=== PATIENT | male | born 1930 | race Caucasian/White ===

== ENCOUNTER 2020-06-12 14:05 | Emergency (ER) | payer MEDICARE ==
[~2020-06-12] VITALS: Ht 190.5 cm; Wt 65.8 kg
[~2020-06-12 14:05] MED LIST: CIPRO500 MG PO; KEFLEX500 MG PO
--- NOTE | 2020-06-13 10:59 | EKG ---
[facility] [address] [facility] [place], [place] [address] Signed Atrial fibrillation with rapid ventricular response Left axis deviation Left bundle branch block Abnormal ECG When compared with ECG of 12-JUN-2020 14:23, (Unconfirmed) ST no longer elevated in Anterior leads Confirmed by DARIEL PUGH DO ([id number]) on 06/13/2020 10:59:34 AM Electronically Signed By: DARIEL PUGH DO 06/13/20 1059 PATIENT NAME: SYDNEY LARA Electrocardiogram DATE OF : [birth year] PHYSICIAN: DARIEL PUGH DO REPORT #: [id number] REPORT IS CONFIDENTIAL AND NOT TO BE RELEASED WITHOUT AUTHORIZATION
--- NOTE | 2020-06-13 10:59 | EKG ---
[facility] [address] [facility] [place], [place] [address] Signed Atrial fibrillation with rapid ventricular response with premature ventricular or aberrantly conducted complexes Left axis deviation Left bundle branch block Abnormal ECG No previous ECGs available Confirmed by DARIEL PUGH DO ([id number]) on 06/13/2020 10:58:58 AM Electronically Signed By: DARIEL PUGH DO 06/13/20 1059 PATIENT NAME: SYDNEY LARA Electrocardiogram DATE OF : [birth year] PHYSICIAN: DARIEL PUGH DO REPORT #: [id number] REPORT IS CONFIDENTIAL AND NOT TO BE RELEASED WITHOUT AUTHORIZATION
--- NOTE | 2020-06-13 11:00 | EKG ---
[facility] [address] [facility] [place] [address] Signed Wide QRS tachycardia Left axis deviation Left bundle branch block Abnormal ECG When compared with ECG of 12-JUN-2020 16:23, (Unconfirmed) Wide QRS tachycardia has replaced Atrial fibrillation Confirmed by DARIEL PUGH DO ([id number]) on 06/13/2020 11:00:32 AM Electronically Signed By: DARIEL PUGH DO 06/13/20 1100 PATIENT NAME: SYDNEY LARA Electrocardiogram DATE OF : [birth year] PHYSICIAN: DARIEL PUGH DO REPORT #: [id number] REPORT IS CONFIDENTIAL AND NOT TO BE RELEASED WITHOUT AUTHORIZATION
== END 2020-06-12 20:16 | disposition short-term general hospital (02) ==
LOC: ED 14:05
DX: I48.91 Unspecified atrial fibrillation (principal); I48.92 Unspecified atrial flutter; N39.0 Urinary tract infection, site not specified
CPT/HCPCS: 70450; 71045; 80053; 81001; 83690; 83880; 84484; 85025; 87077; 87088; 87186; 93005; 93010; 96365; 96375; 96376; 99285-25; J0282; J0696; J1160; J1650; J2001; J7040

== ENCOUNTER 2020-06-26 11:01 | Emergency (ER) | payer MEDICARE ==
[~2020-06-26] VITALS: Ht 190.5 cm; Wt 65.8 kg
--- OUTSIDE RECORDS SUMMARY | 2020-06-26 11:04 | XMS ---
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 Sigrid has no Care Guidelines for this patient. [place] VISIT COUNT (12 MO.) [address] [facility] [address] [facility] TOTAL 3 NOTE: Visits indicate total known visits. ED/C VISIT TRACKING (12 MO.) 06/26/2020 11:01 [facility] [place] TYPE: Emergency COMPLAINT: - LIGHT HEADED, DIZZY [facility] DIAGNOSES: - Urinary tract infection, site not specified - Hematuria, unspecified - Arrthymia - Weakness - Weakness - Unspecified atrial fibrillation 06/12/2020 14:06 [facility] TYPE: Emergency COMPLAINT: - SLURRED SPEACH, WEAKNESS, WOUND CHECK DIAGNOSES: - Unspecified atrial flutter - Unspecified atrial fibrillation - Urinary tract infection, site not specified INPATIENT VISIT TRACKING (12 MO.) [facility]12[facility]2020 21[facility] DIAGNOSES: - Unspecified atrial fibrillation - Weakness - Acute cystitis with hematuria - Urinary tract infection, site not specified - Hematuria, unspecified - Other specified abnormalities of plasma proteins [email or web address]
[2020-06-26] MEDS ORDERED: ELIQUIS5 MG PO (11:19)
[2020-06-26] MEDS ORDERED: PROBIOTIC1 EAC1 PO (11:20)
--- NOTE | 2020-06-26 13:54 | EKG ---
[facility] [address] [facility] [place] [address] Signed Sinus rhythm with premature supraventricular complexes Left axis deviation Left bundle branch block Abnormal ECG When compared with ECG of 12-JUN-2020 17:20, Sinus rhythm has replaced Wide QRS tachycardia Vent. rate has decreased BY 78 BPM Confirmed by BRONWYN DRAKE MD ([id number]) on 06/26/2020 1:53:54 PM Electronically Signed By: BRONWYN DRAKE MD 06/26/20 1354 PATIENT NAME: SYDNEY LARA Electrocardiogram DATE OF : [birth year] PHYSICIAN: BRONWYN DRAKE MD REPORT #: [id number] REPORT IS CONFIDENTIAL AND NOT TO BE RELEASED WITHOUT AUTHORIZATION
== END 2020-06-26 12:23 | disposition home or self-care (01) ==
LOC: ED 11:01
DX: R42 Dizziness and giddiness (principal); Z79.899 Other long term (current) drug therapy
CPT/HCPCS: 80048; 84484; 85025; 93005; 93010; 99284-25